=== PATIENT | female | born 1985 | race Caucasian/White ===

== ENCOUNTER 2022-06-16 12:21 | Emergency (ER) | payer OTHER, SELFPAY ==
--- NOTE | 2022-06-16 12:24 | ED.FEMALEGU ---
HPI - Female Genitourinary General Chief complaint: Urogenital-Female Stated complaint: FREQUENT/BURNING URINATION Time Seen by Provider: 06/16/22 12:24 Source: patient Mode of arrival: ambulatory Limitations: no limitations History of Present Illness HPI Narrative: Marleni is a 36-year-old female patient presenting to the clinic today with complaints of burning with urination, frequency, and urgency. She denies any flank pain or abdominal pain. States symptoms started on Monday but then gradually got better but now it has come back with a vengeance since yesterday. Related Data Allergies Allergy/AdvReac Type Severity Reaction Status Date / Time No Known Allergies Allergy Verified 06/16/22 12:29 Review of Systems Review of Systems: Pertinent positives per HPI. Patient denies any fever, chills, rash, headache, visual changes, dizziness, cough, runny nose, sore throat, shortness of breath, chest pain, palpitations, nausea, vomiting, diarrhea, constipation, or any abdominal pain. PMFSH Comments At the time of my signature, I reviewed and agree with the nursing past medical, surgical, social, and family history. There is no relevant family history pertinent to the patient complaint. Exam Narrative: General: Well-developed, well nourished, in no apparent distress. Head: Normocephalic, atraumatic. Cardio: Regular rate and rhythm, s1 and s2 normal, no murmur appreciated. Resp: Clear to auscultation bilaterally, no rhonchi, rales, wheezing or rubs. Abdomen: Soft, pliable, bowel sounds present in all quadrants, non-tender to palpation, no organomegly, no CVAT tenderness. Course Course Emergency Course: Portions of this record may have been created with voice recognition software. Level of Care: Express Care Visit Vital Signs Vital signs: Vital Signs Temperature 36.9 C 06/16/22 12:31 Pulse Rate 82 06/16/22 12:31 Respiratory Rate 16 06/16/22 12:31 Blood Pressure 127/93 H 06/16/22 12:31 Pulse Oximetry 100 06/16/22 12:31 Oxygen Delivery Room Air 06/16/22 12:31 Temperature 36.9 C 06/16/22 12:31 Pulse Rate 82 06/16/22 12:31 Respiratory Rate 16 06/16/22 12:31 Blood Pressure 127/93 H 06/16/22 12:31 Pulse Oximetry 100 06/16/22 12:31 Oxygen Delivery Room Air 06/16/22 12:31 Vital signs reviewed MDM - Female Genitourinary MDM Narrative Medical decision making narrative: At the time of the patient is resting comfortably on the exam table. Urinalysis shows 1+ leukocyte. We will send for culture. I will place patient on Bactrim ds 1 tablet twice a day for 7 days. Supportive measures were discussed with the patient she voiced understanding of discharge instructions. Differential Diagnosis Differential diagnosis: Likely urinary tract infection and cystitis Lab Data Labs: Urine Glucose Negative Reference Range: Negative Urine Bilirubin Negative Reference Range: Negative Urine Ketone Negative Reference Range: Negative Urine Specific [place] 1.030 Reference Range:1.001-1.035 Urine Blood Negative Reference Range: Negative * * Urine pH 7.0 Reference Range: 5.0-9.0 Urine Protein Negative Reference Range: Negative Urine Urobilinogen 0.2 Reference Range: 0.2-1.0 Urine Nitrate Negative Reference Range: Negative Urine Safia
[2022-06-16 12:31] VITALS: BP 127/93; PULSE 82; RESP 16; TEMP 36.9; O2SAT 100
== END 2022-06-16 13:32 | disposition home or self-care (01) ==
PROVIDERS: Emergency Provider Nurse Practitioner Family; PCP Physician Assistant
DX: N30.00 Acute cystitis without hematuria (principal)
CPT/HCPCS: 81003; 87077; 87086; 87186; 99213; G0463

== ENCOUNTER 2022-08-13 00:39 | Emergency (ER) | payer OTHER, SELFPAY ==
--- NOTE | ~2022-08-13 | CT_ITS ---
EXAMINATION: CT abdomen pelvis wo con DATE: 08/13/2022 02:50 INDICATION: Left upper quadrant pain. Nausea. TECHNIQUE: Computed tomography (CT) of the abdomen and pelvis was performed without intravenous contr ast. The dose-length product was 645.94 mGy-cm. Automated exposure control and iterative reconstructi on technique were employed. COMPARISON: No prior studies for comparison. FINDINGS: Lung bases are unremarkable. Heart size normal. Calcified granulomas right lung base. No si gnificant pleural or pericardial effusion. No significant vascular abnormality. There are calcified g ranulomas of the spleen. No lymphadenopathy. The liver is unremarkable. The pancreas, adrenal glands and kidneys are unremarkable. Bladder is norm al. No abnormal pelvic masses or fluid collections. Nonobstructive bowel pattern. Small fat-containin g umbilical hernia. No abnormal pelvic masses or fluid collections. No acute bone or joint abnormalit y. Mild lumbar spondylosis. IMPRESSION: 1. No acute abdominal abnormality. Reviewed, dictated and finalized at location A.
[2022-08-13 00:40] VITALS: BP 129/88; PULSE 111; RESP 16; TEMP 36.4; O2SAT 100
--- NOTE | 2022-08-13 01:36 | ED.ABDPAIN ---
HPI - Abdominal Pain General Chief Complaint: Abdominal Pain <LIBBY Katz Last Filed: 08/13/22 03:46> Stated Complaint: left abdominal pain <LIBBY Katz Last Filed: 08/13/22 03:46> Time Seen by Provider: 08/13/22 00:51 <LIBBY Katz Last Filed: 08/13/22 03:46> Source: patient <LIBBY aKtz Filed: 08/13/22 03:46> Mode of arrival: ambulatory <LIBBY Katz Filed: 08/13/22 03:46> Limitations: no limitations <LIBBY Katz Filed: 08/13/22 03:46> History of Present Illness HPI narrative: Patient is a 36 y/o female who presents to the ED with c/o LUQ/L sided abdominal pain. Patient reports having dull pain intermittently over the last few days. Yesterday, 08/12, the pain became more constant and progressively worsened throughout the day. Patient unable to find comfortable position, unable to find relief with ibuprofen and Tylenol taken prior to arrival. She does report some nausea with the pain, but denies vomiting. Denies back pain, fevers, diarrhea, constipation, chest pain, difficulty breathing, urinary symptoms. She denies history of similar pain. Denies history of diverticulitis or kidney stones. Patient mentions her kids recently had strep throat. She does complain of mild sore throat and left ear pain. <LIBBY Katz Last Filed: 08/13/22 03:46> Related Data Home Medications: Home Medications Medication Instructions Recorded Confirmed No Home Medications 08/13/22 08/13/22 <LIBBY Katz Last Filed: 08/13/22 03:46> Allergies/Adverse Reactions: Allergies Allergy/AdvReac Type Severity Reaction Status Date / Time No Known Allergies Allergy Verified 08/13/22 00:46 <LIBBY Katz Last Filed: 03/18/23 03:46> Review of Systems Review of Systems: CONSTITUTIONAL: Denies fever, chills, or sweats. ENT: See HPI. CARDIOVASCULAR: Denies chest pain. RESPIRATORY: Denies dyspnea. GASTROINTESTINAL: See HPI. GENITOURINARY: Denies dysuria or hematuria. MUSCULOSKELETAL: Denies back pain. NEUROLOGIC: Denies headache, numbness, or weakness. <Ayah Zarco PA-C - Last Filed: 08/13/22 03:46> All systems reviewed & are unremarkable except as noted in HPI and below <Ayah Zarco PA-C - Last Filed: 08/13/22 03:46> [facility] Past Medical History Medical History: Medical History (Updated 08/14/22 @ 00:02 by Fannie Porter) No pertinent past medical history <Ayah Zarco PA-C - Last Filed: 08/13/22 03:46> Surgical History Surgical History: Surgical History (Updated 08/13/22 @ 01:45 by Ayah Zarco PA-C) No pertinent past surgical history <Ayah Zarco PA-C - Last Filed: 08/13/22 03:46> Social History Social History: Social History (Updated 08/13/22 @ 01:45 by Ayah Zarco PA-C) Smoking status: Never smoker <Ayah Zarco PA-C - Last Filed: 08/13/22 03:46> Exam Narrative: GENERAL: Uncomfortable appearing, obese, non-toxic, in mild acute distress due to pain. Pacing around ED room. HEAD: Normocephalic, atraumatic. ENT: TMS clear, with good light reflex. No erythema or bulging. NECK: Supple. Minimal left sided posterior lymphadenopathy, very mildly tender, no masses. RESPIRATORY: Airway patent, respirations nonlabored. Clear to auscultation bilaterally, no rales, rhonchi, wheezing. CARDIOVASCULAR: Tachycardic with regular rhythm without murmurs, rubs, or gallops. Peripheral pulses 2+ and equal bilaterally. ABDOMINAL: Soft, tenderness throughout left lateral abdomen, left upper quadrant. Nondistended, no hepatosplenomegaly. Normoactive BS. No significant CVA tenderness to percussion. MUSCULOSKELETAL: Moves all extremities. Strength/ROM intact without gross deformities. No tenderness palpation throughout lumbosacral region. SKIN: Warm, dry,
[2022-08-13] MEDS: ONDANSETRON INJ 4 MG/2 ML VIAL IV PUSH (01:40)
[2022-08-13] MEDS: SODIUM CHLORIDE 0.9% IV 1,000 ML 999 ML IV CONT (01:40)
[2022-08-13] MEDS: MORPHINE SULFATE (*CRX) 4 MG/ML INJ IV PUSH (01:41)
[2022-08-13 01:49] VITALS: BP 131/88; PULSE 93; RESP 17; O2SAT 97
[2022-08-13 01:51] LABS: Basophils Absolute Auto 0.1 K/mm3 (0.0-0.1); Basophils Percent Auto 0.6 % (0.2-1.2); Eosinophils Absolute Auto 0.4 K/mm3 (0-0.3); Eosinophils Percent Auto 4.6 % (0-4.4); Hematocrit 41.8 % (37.0-47.0); Hemoglobin 13.7 g/dL (12.0-15.0); Immature Granulocyte Absolute 0.02 K/mm3 (0.00-0.031); Immature Granulocyte Percent A 0.2 % (0-0.5); Lymphocytes Absolute Auto 3.49 K/mm3 (0.9-3.2); Lymphocytes Percent Auto 40.3 % (18.3-44.2); Mean Corpuscular HGB Conc 32.8 g/dl (32-36); Mean Corpuscular Volume 88.4 fl (80-100); Mean Platelet Volume 9.3 fl (7.4-10.4); Monocytes Percent Auto 11.3 % (2.6-8.5); Neutrophils Absolute Auto 3.7 K/mm3 (1.3-6.7); Platelet Count Result 326 k/mm3 (150-375); Red Blood Count 4.73 M/mm3 (4.2-5.4); Red Cell Distribution Width 12.2 % (11.5-14.5); White Blood Count 8.7 K/mm3 (4.5-10.0)
[2022-08-13 02:01] LABS: Appearance Urine Clear (Clear); Bacteria Urine None Seen /hpf; Bilirubin Urine Negative (Negative); Blood Urine Negative (Negative); Color Urine Yellow (Yellow); Glucose Urine UA Negative (Negative); Ketones Urine Negative (Negative); Leukocyte Esterase Ur Trace LEU/UL (Negative); Nitrate Urine Negative (Negative); Non Pathogenic Casts 0-2; Protein Urine Negative (Negative); RBC Urine 0-2 /hpf (0-2); Specific Grav Ur 1.009 (1.001-1.035); Squamous Epithelial Cell Urine Occasional /hpf (Few); Urobilinogen Urine 0.2 mg/dL (<2.0); WBC Urine 0-5 /hpf
[2022-08-13 02:02] LABS: Alanine Aminotransferase 26 U/L (6-35); Albumin Level 4.8 g/dL (3.5-5.1); Alkaline Phosphatase 92 U/L (38-126); Anion Gap 9 mmol/L (8-16); Aspartate Amino Transferase 25 U/L (14-36); Bilirubin,Total 0.6 mg/dL (0.2-1.3); Blood Urea Nitrogen 15 mg/dL (7-17); Calcium 10.1 mg/dL (8.4-10.2); Carbon Dioxide 27 mmol/L (22-30); Chloride 103 mmol/L (98-107); Estimated CRCL calculation 108 ml/min; Estimated Glomerular Filt Rate > 60; Glucose 129 mg/dL (65-110); Lipase 161 U/L (23-300); Potassium 3.6 mmol/L (3.4-5.0); Sodium 139 mmol/L (137-145)
[2022-08-13 02:16] LABS: Strep Group A RT-PCR NOT DETECTED (Negative)
[2022-08-13 03:01] LABS: Add Urine Microscopic? YES
[2022-08-13 04:10] VITALS: BP 116/78; PULSE 88; RESP 17; O2SAT 100
--- NOTE | 2022-08-13 05:07 | PC.NURSE ---
Patient states her pain is getting back up there and requesting pain medication, but not as much, cause I didn't like the way it made me feel. ERP notified, VORB give 2mg morphine IVP.
[2022-08-13] MEDS: MORPHINE SULFATE (*CRX) 2 MG/ML INJ IV PUSH (05:11)
[2022-08-13 05:56] LABS: Monoscreen Negative (Negative); Negative Monotest Control Negative (Negative); Positive Monotest Control Positive (Positive)
[2022-08-13 05:58] VITALS: BP 120/69; PULSE 82; RESP 16; TEMP 37.1; O2SAT 100
[2022-08-13 07:37] VITALS: BP 128/83; PULSE 84; RESP 18; O2SAT 100
[2022-08-13 09:09] VITALS: BP 122/83; PULSE 75; RESP 18; O2SAT 98
== END 2022-08-13 09:11 | disposition home or self-care (01) ==
PROVIDERS: Physician Assistant; Emergency Provider Emergency Medicine; PCP Physician Assistant
DX: R10.12 Left upper quadrant pain (principal)
CPT/HCPCS: 36415; 74176; 80053; 81001; 81025; 83690; 85025; 86308; 87651; 96361; 96374; 96375; 96376; 99284; J2270; J2405; J7030

== ENCOUNTER 2025-01-30 09:16 | Outpatient (CLI) | payer OTHER, SELFPAY ==
--- NOTE | ~2025-01-30 | US_ITS ---
ULTRASOUND ABDOMEN LIMITED (RIGHT UPPER QUADRANT) Clinical History: ruq pain Comparison: CT abdomen and pelvis 08/13/2022 Technique: Right upper quadrant sonography Findings: Liver: Normal size. Echogenic. No intrahepatic biliary ductal dilatation. Normal hepatopedal flow main portal vein. Common Duct: Normal caliber. 4 mm. Gallbladder: Removed. Pancreas: Largely obscured by bowel gas. Retrohepatic IVC: Unremarkable. IMPRESSION: 1. No acute findings. Reviewed, dictated and finalized at location R. IMPRESSION: 1. No acute findings.
== END 2025-01-30 09:17 | disposition home or self-care (01) ==
PROVIDERS: PCP Physician Assistant; Visit Provider Physician Assistant
DX: R10.11 Right upper quadrant pain (principal)
CPT/HCPCS: 76705